=== PATIENT | male | born 2000 | race Asian ===

== ENCOUNTER 2025-05-13 22:17 | Emergency (ER) | payer OTHER ==
[~2025-05-13] VITALS: Ht 162.6 cm; Wt 63.6 kg
[2025-05-13 22:28] VITALS: BP 134/81; PULSE 75; RESP 14; TEMP 98.8; O2SAT 99
== END 2025-05-13 23:58 | disposition home or self-care (01) ==
LOC: EMS 22:31
DX: S50.811A Abrasion of right forearm, initial encounter (principal); F20.9 Schizophrenia, unspecified; F31.9 Bipolar disorder, unspecified; Z85.858 Personal history of malignant neoplasm of other endocrine glands; Z90.49 Acquired absence of other specified parts of digestive tract; W50.4XXA Accidental scratch by another person, initial encounter; Y93.89 Activity, other specified; Y92.89 Other specified places as the place of occurrence of the external cause; Y99.0 Civilian activity done for income or pay
CPT/HCPCS: 99282; Z7502